=== PATIENT | female | born 1990 | race Two or more races ===

== ENCOUNTER → 2024-08-14 | Outpatient (BNVA) | payer MEDICAID, SELFPAY | END | disposition home or self-care (01) | PROVIDERS: PCP Nurse Practitioner Family; Referring Provider Nurse Practitioner Family; Visit Provider Urology | DX: N20.1 Calculus of ureter (principal); E66.9 Obesity, unspecified; Z68.29 Body mass index [BMI] 29.0-29.9, adult | CPT/HCPCS: 81003; 99212; G0463 ==

== ENCOUNTER 2024-09-03 06:30 | Day surgery (SDC) | payer MEDICAID, SELFPAY ==
[2024-09-02 11:52] VITALS: BMI 29.7
[2024-09-02 13:32] LABS: HCG Qualitative,Urine Positive
--- NOTE | 2024-09-02 14:44 | SUR.PREOP ---
Pt's test came back positive, pt stated she had an last Sunday and she provided documentation of the , Dr Hairston reviewed the paperwork,
[2024-09-03] VITALS (8 sets, daily range): BP systolic 112–145; BP diastolic 79–98; PULSE 73–100; RESP 12–18; TEMP 36.2–36.5; O2SAT 96–100; BMI 29.0
[2024-09-03] MEDS: VANCOMYCIN/NS 1 GM IVPB 200 ML IV (07:18)
[2024-09-03] MEDS: RINGERS LACTATED 1000 ML 1,000 ML 20 ML IV (07:18)
--- NOTE | 2024-09-03 08:20 | XR_ITS ---
Retrograde pyelogram right with without KUB Fluoroscopy 10 spot fluoroscopic abdomen films Exam date and time: September 03, 2024 1027 hours INDICATIONS: History right flank pain beginning February 2024, right hydronephrosis 5 mm distal right ureterovesical junction calculus on CT examination March 13, 2024, ureteral stone manipulation stent placement today TECHNIQUE AND FINDINGS: 10 spot fluoroscopic films of the abdomen Partial opacification of mildly dilated renal calyces Right ureteral stent satisfactory position Fluoroscopy 40 seconds radiation dose 9.7 milligray IMPRESSION: Right retrograde pyelogram as above
--- NOTE | 2024-09-03 10:10 | SUR.PHASEI ---
pt arrived to PACU via gurney awake, alert, able to follow commands, breathing unlabored, pt requests bedpan to urinate-pt placed on bedpan, report from Med KIM[facility] and Dr Mcknight
--- NOTE | 2024-09-03 10:31 | ESOP_ITS ---
Date of Procedure 09/03/24 Pre Op Diagnosis About 6 mm stone right distal ureter, right hydronephrosis, Post Op Diagnosis Same plus stone has moved into the right kidney middle pole calyx Procedure Cystoscopic examination right digital flexible ureteroscopy laser stone fragmentation and evaporation of right RIR right retrograde pyelogram under fluoroscopic examination placement of right ureteral stent in a retrograde fashion Findings Stone in the right distal ureteral which has moved into the right kidney Procedure Description Indication for procedure this is 34-year-old female. She has a history of stone disease in the past. She had right flank pain 2 years ago and she has seen the PCP according to the patient she was told she has a large stone and she was not referred for the treatment. Recently she had severe right flank pain with nausea vomiting, about a month before she consulted me, she had a CAT scan with stone protocol revealed right hydronephrosis and a 5 mm to 6 mm stone in the right distal ureter. She was recommended above procedure procedure and complications were discussed with patient in great detail informed consent is obtained Patient was brought to the operating room in a satisfactory condition after appropriate premedication she was appropriately identified by surgeon and operating room staff site scope and indication of the procedure were reconfirmed with the patient. General anesthesia was given uneventfully patient was positioned in a dorsal lithotomy position parts were prepped and draped in the usual sterile fashion at this time patient received perioperative antibiotics 20 mg of Lasix IV was given for diuresis and for prevention of pyelocalyceal infectious complications. Next 21 cystoscope was used to do the cystourethroscopy examination of the urethra revealed no stricture examination of bladder in all the quadrant was carried out there was no tumor stone or diverticula identified there was a E flux of clear urine from the left side there was no urine coming out of right ureteral orifice. Next I passed a open- ended Pollick catheter right ureteral orifice through the open-ended Pollick catheter I placed a safety wire into the upper pole calyx. At this time right collecting system I had decompressed it with urine coming out of right ureteral orifice under pressure next cystoscope was withdrawn gently semirigid ureteroscope was used for ureteroscopy and for passive dilation of the right ureter. The stone has already moved there was a inflammatory reaction around the stone in the distal ureter. At this time I used flexible digital ureteroscopy passed under direct vision into the collecting system. There was 5 to 6 mm stone in the middle pole calyx. With the 200 ?m laser fiber I fragmented the stone and evaporated. No active bleeding was seen hide retrograde pyelogram was performed there was no injury to the collecting system identified right side. Next the ureteroscope was withdrawn gently over the safety wire under fluoroscopic examination I placed 26 cm long 6 British double-J stent proximal and curled in the renal pelvis distally in the bladder. Bladder was emptied patient after having tolerated the procedure well was sent to recovery room in a satisfactory condition to be discharged home she will be followed in urology office for removal of the stent in 1 week's time thank you Patient is encouraged to drink a lot of fluid and pain medication is given to the patient Anesthesia GETA Pathology / specimen None Estimated Blood Loss 0.2 Disposition PACU Surgeon Jerome Leonard MD Surgical Staff Operation Date: 09/03/24 08:45 Case Staff Anesthesiologist: Lorenzo Mcknight
[2024-09-03] MEDS: traMADol HCL 50 MG TABLET PO (10:59)
--- NOTE | 2024-09-03 11:30 | SUR.PHASEII ---
pt awake, alert, able to follow commands, breathing unlabored, pt able to ambulate to bathroom to urinate, discharge instructions given by Juana Mackenzie RN, all questions answered, pt discharged via wheelchair with all belongings and copies of discharge paperwork.
== END 2024-09-03 11:30 | disposition home or self-care (01) ==
PROVIDERS: Anesthesiology; PCP Nurse Practitioner Family; Referring Provider Urology; Visit Provider Urology
PROC: 0TJB8ZZ Inspection of Bladder, Via Natural or Artificial Opening Endoscopic (ICD-10-PCS; CPT 52000; principal; 2024-09-03 08:30)
DX: N13.2 Hydronephrosis with renal and ureteral calculous obstruction (principal)
CPT/HCPCS: 52356; 76000; 81025; A4217; A4649; C1769; C1889; C1894; C2617; J1100; J1580; J1940; J2250; J2405; J2704; J3010; J3370; J3490; J7120; A9270

== ENCOUNTER 2024-09-08 23:53 | Emergency (ER) | payer MEDICAID, SELFPAY ==
[2024-09-08 23:53] VITALS: BMI 29.5
[2024-09-09 00:10] VITALS: BP 138/95; PULSE 80; RESP 18; TEMP 36.6; O2SAT 97
--- NOTE | 2024-09-09 00:17 | PD.EDRME ---
Rapid Medical Screening Exam RME Arrival date/time: 09/08/24 23:53 34-year-old female with spontaneous 10 days ago and status post renal stent placement reports with complaints of shortness of breath chest pain that radiates to left arm and jaw Chief Complaint: Chest Pain Time Seen by Provider: 09/09/24 00:10 Vital signs: Vital Signs Temperature 98 F 09/09/24 00:10 Pulse Rate 80 09/09/24 00:10 Respiratory Rate 18 09/09/24 00:10 Blood Pressure 138/95 H 09/09/24 00:10 Pulse Oximetry (%) 97 09/09/24 00:10 Oxygen Delivery Method Room Air 09/09/24 00:10
--- NOTE | 2024-09-09 00:39 | EDNOTE_ITS ---
ED Chest Pain RME/HPI General Chief Complaint: Chest Pain Stated Complaint: CHEST PRESSURE X 2HOURS Time Seen by Provider: 09/09/24 00:10 Arrival date/time: 09/08/24 23:53 Limitations: no limitations RME / HPI RME / HPI narrative: 09/08/24 23:53 34-year-old female with spontaneous 10 days ago and status post renal stent placement reports with complaints of shortness of breath chest pain that radiates to left arm and jaw ----- Dr. Ott's Main ED Evaluation: 34yo female with a recent spontaneous 10 days ago presents to the ED for a chief complaint of left-sided chest pain x 2 hours [employer]. Patient states she was cooking when she started having chest pain. She states the pain radiates to her left arm and is pressure in nature. She reports associated numbness, facial pain, and mild shortness of breath. She denies any cough, fever, chills or any other associated symptoms. Denies being on control. Denies any tobacco use. No known allergies. Patient notes having occasional vaginal spotting. Related Data Previous Rx's ?Medication ?Instructions ?Recorded tramadol 50 mg tablet 50 mg PO Q8H PRN pain #10 tabs 09/03/24 Allergies Allergy/AdvReac Type Severity Reaction Status Date / Time No Known Allergies Allergy Verified 09/03/24 11:27 Review of Systems Review of Systems Systems Reviewed: All systems reviewed, normal except as documented Past Medical History Past Medical History NEUROLOGIC: Negative Neurological Disorders or Seizures CARDIAC: Negative Cardiac Disorders or Congestive Heart Failure RESPIRATORY: Positive Asthma; Negative Chronic Obstructive Pulmonary Disease (COPD) GASTROINTESTINAL: Negative Gastrointestinal Disorders GENITOURINARY: Positive Genitourinary Disorders and Kidney Stones; Negative Renal Disease REPRODUCTIVE: Positive Previous Pregnancies (abortions) MUSCULOSKELETAL: Negative Musculoskeletal Disorders ENDOCRINE: Negative Endocrine Disorders, Diabetes Mellitus Type 1 or Diabetes Mellitus Type 2 HEMATOLOGIC: Negative Blood Disorders or Sickle Cell Disease OTHER HISTORY: Negative Hospitalization, Autoimmune Disease, Shingles, Blood Transfusions, Blood Transfusion Reaction, Anesthesia Reactions, Clostridium Difficile or Cancer Family History FAMILY HISTORY: Negative Family Psychiatric Problems, Family Respiratory Disorders, Family Cardiac Disorders, Family Gastrointestinal Problems, Family Cancer, Family Surgery or Family Anesthesia Reaction Social History SMOKING STATUS: Never smoker SUBSTANCE USE: does not use ED Exam General Limitations: Present no limitations General appearance: Present alert and in no apparent distress Head Head exam: Present atraumatic Eye Eye exam: Present normal appearance, PERRL and EOMI ENT ENT exam: Present normal exam, normal oropharynx and mucous membranes moist Neck Neck exam: Present normal inspection, full ROM and trachea midline Chest Chest inspection: Present normal inspection and symmetric chest wall rise Respiratory Respiratory exam: Present normal lung sounds bilaterally Cardiovascular Cardiovascular exam: Present regular rate, normal rhythm and normal heart sounds Abdominal Exam Abdominal exam: Present soft and normal bowel sounds Extremities Exam Extremities exam: Present normal inspection and full ROM Back Exam Back exam: Present normal inspection and full ROM Neurological Exam Neurological exam: Present alert, oriented X3 and CN II-XII intact Psychiatric Psychiatric exam: Present normal affect and normal mood Skin Skin exam: Present warm, dry, intact and normal color Course Quality Measures none Orders Category Date Time Status CT Screening NOW Care 09/09/24 00:16 Completed EKG (ED ONLY) *Do not use* NOW Care 09/08/24 23:55 Completed Insert IV NOW Care 09/09/24 00:38 Completed CXRP [XR chest 1V portable] Stat Exams 09/09/24 04:00 Taken EKG (ED Only) Stat Exams 09/08/24 23:55 Ordered CBC Stat Lab 09/09/24 00:41 Completed CMP [Comprehensive Metabolic Panel] Stat Lab 09/09/24 00:41 Completed D-Dimer Stat Lab 09/09/24 00:41 Completed HCG,Qualitative Serum Stat Lab 09/09/24 00:41 Completed PT [Prothrombin Time with INR] Stat Lab 09/09/24 00:41 Completed PTT [Partial Thromboplastin Time] Stat Lab 09/09/24 00:41 Completed Troponin I Stat Lab 09/09/24 00:41 Completed Ketorolac Inj [Toradol Inj] Med 09/09/24 04:58 Discontinued 15 mg IVP X1 ONE Vital Signs Vital signs: Vital Signs Temperature 98 F 09/09/24 00:10 Pulse Rate 80 09/09/24 00:10 Respiratory Rate 18 09/09/24 00:10 Blood Pressure 138/95 H 09/09/24 00:10 Pulse Oximetry (%) 97 09/09/24 00:10 Oxygen Delivery Method Room Air 09/09/24 00:10 Pulse ox is 97% on room air, which is normal according to my interpretation. Chest Pain Patient data External records reviewed:: [facility] previous records (Per chart review, patient has no relevant previous ED visits.) Clinical information provided by:: patient Social determinants that could affect healthcare access:: none Patient has the following chronic illnesses:: asthma How is presenting disease/condition affected by chronic disease/condition?: uneffected by Evaluation data The following diagnostics were reviewed and interpreted by me:: lab results, radiology exam(s) and EKG tracing(s) Lab and/or radiology exams considered but not ordered:: none Interpretation Summary: CBC is normal, CMP is normal, Troponin is normal, HCG is negative, according to my interpretation. CXR is negative for any infiltrates, cardiomegaly, pleural effusions or any other acute findings, according to my interpretation. EKG done at 0007, NSR, rate of 71, normal intervals, normal axis, no acute ST or T wave changes, no STEMI, according to my interpretation. Medications / Prescriptions Medications or Prescriptions considered but not ordered:: none Medication administrations:: Medication Administration History Discontinued Medications Ketorolac Tromethamine (Ketorolac Inj 30 Mg/Ml Vial) 15 mg IVP X1 ONE Stop: 09/09/24 04:59 Last Admin: 09/09/24 05:01 Dose: 15 mg Documented By: DB see above, if any Consultations Consultation(s) initiated? (list below): No Diagnosis Chest Pain Differential Diagnosis: costochondritis and other (PE, STEMI, NSTEMI, electrolyte abnormality, dehydration, musculoskeletal pain) Most likely diagnosis given after review of the tests above:: see below Admission Indicated Admission indicated?: not indicated Admission Request Was there a request for admission?: No Disposition Plan Disposition Plan: Discharge Discharge Attestation Discharge Attestation: The patient and all family members were given an opportunity to ask questions and understood the discharge instructions. Discharge instructions specifically effects, indications for sooner follow up or return to the emergency department, and the expected course of current diagnosis. Patient condition: Stable Discharge Plan Plan Patient Disposition: HOME (Self Care) Patient condition on transfer: Stable Prescriptions/Referrals Prescriptions/Med Rec: No Action tramadol 50 mg tablet 50 mg PO Q8H PRN (Reason: pain) Qty: 10 0RF Referrals: Temporary Provider,ED [Physician] - In 1 week Problem List Clinical Impression: Atypical chest pain Patient/Caregiver Discharge Instructions Education Materials: ED Pain, Acute, Uncertain Cause Additional Instructions: You can take [id number] Motrin and or Tylenol as needed for the next 2 to 3 days. Your blood test are reassuring and I do not believe that you have a clot in your lung or having a heart attack. Please follow-up with your primary care in the next 3 to 4 days. Return to the emergency department for worsening symptoms or any other concerns. Stay hydrated with Pedialyte and Gatorade to avoid dehydration. Print Language: Malagasy Stand Alone Forms: Eva Award Info., Patient Portal Info Letter
[2024-09-09 01:03] LABS: Basophils % (Auto) 0 % (0-2.5); Eosinophils # (Auto) 0.2 Thou/mm3 (0.0-0.5); Eosinophils % (Auto) 3 % (0-10); Hematocrit 38.8 % (36.0-46.0); Immature Granulocytes % (Auto) 0 % (0-0); Immature Granulocytes Auto 0.02 Thou/mm3 (0.00-0.00); Lymphocytes # (Auto) 2.6 Thou/mm3 (1.0-4.8); Lymphocytes % (Auto) 33 % (10-50); Mean Corpuscular HGB Conc 36.1 g/dl (31.0-37.0); Mean Corpuscular Hemoglobin 30.5 pg (25.0-35.0); Mean Corpuscular Volume 85 fL (80-100); Monocytes # (Auto) 0.6 Thou/mm3 (0.0-0.8); Monocytes % (Auto) 7 % (0-12); Neutrophils # (Auto) 4.4 Thou/mm3 (1.8-7.7); Neutrophils % (Auto) 56 % (37-80); Nucleated Red Blood Cell % 0 /100 WBC (0); Platelet Count 273 Thou/mm3 (140-440); RDW Standard Deviation 36.2 fL (36.4-46.3); Red Blood Count 4.59 Miln/mm3 (4.00-5.20); White Blood Count 7.9 Thou/mm3 (3.6-11.0)
[2024-09-09 01:13] LABS: HCG,Qualitative Serum Negative
[2024-09-09 01:16] LABS: Partial Thromboplastin Time 26.5 Seconds (22.0-36.0); Prothrombin Time 10.9 Seconds (9.0-12.2)
[2024-09-09 01:19] LABS: Alanine Aminotransferase 38 U/L (10-49); Albumin, Serum 4.8 gm/dL (3.5-5.0); Albumin/Globulin Ratio 1.9 (1.2-2.2); Alkaline Phosphatase 75 U/L (46-116); Anion Gap 7 (7-16); Aspartate Amino Transferase 23 U/L (0-34); BUN/Creatinine Ratio 19 Ratio (12-20); Bilirubin,Total 0.4 mg/dL (0.3-1.2); Blood Urea Nitrogen 15 mg/dL (9-23); Carbon Dioxide 28.7 mMol/L (20.0-31.0); Chloride 106 mMol/L (98-107); Creatinine (Component) 0.8 mg/dL (0.6-1.3); Globulin 2.5 gm/dL (2.3-3.5); Glucose 94 mg/dL (74-106); Osmolality,Calculated 283 (275-295); Potassium 3.6 mMol/L (3.4-5.1); Sodium 142 mMol/L (136-145); Total Protein 7.3 gm/dL (5.7-8.2); Troponin I < 0.002 ng/mL (0.0-0.045); eGFR > 60 See Note
[2024-09-09 02:29] LABS: D-Dimer < 250 ng/mL (<600)
--- NOTE | 2024-09-09 04:00 | XR_ITS ---
Examination: AP chest single view Technique one AP portable upright chest single view Exam date and time: September 09, 2024 0409 hours Comparison June 24, 2008 INDICATIONS: Chest pain today. FINDINGS: Normal heart size. Lungs are clear. The osseous structures are intact IMPRESSION: No active disease
[2024-09-09] MEDS: KETOROLAC INJ 30 MG/ML VIAL 15 MG IVP (05:01)
[2024-09-09 05:11] VITALS: BP 114/76; PULSE 62; RESP 16; TEMP 36.6; O2SAT 99
== END 2024-09-09 05:11 | disposition home or self-care (01) ==
PROVIDERS: Physician Assistant; Emergency Provider Emergency Medicine; PCP Nurse Practitioner Family
DX: R07.89 Other chest pain (principal)
CPT/HCPCS: 36415; 71045; 80053; 84484; 84703; 85025; 85379; 85610; 85730; 93005; 96374; 99285; J1885

== ENCOUNTER 2024-10-24 21:27 | Emergency (ER) | payer MEDICAID, SELFPAY ==
[2024-10-24 21:29] VITALS: BMI 27.4
[2024-10-24 21:50] VITALS: BP 132/93; PULSE 79; RESP 20; TEMP 36.8; O2SAT 97
--- NOTE | 2024-10-24 21:58 | XR_ITS ---
Examination: CT abdomen and pelvis without contrast. Coronal 3-D reconstructions. Sagittal 2-D reconstructions. Date and time of exam:October 24, 2024 at 11:31 PM Comparison March 13, 2024 INDICATIONS: Right flank pain beginning 2 days ago CTDI: vol (mGy): 8.44 DLP: (mGycm): 472 Technique: Axial images of the abdomen have been obtained, 3 mm slice thickness Intravenous contrast material has not been administered. Low dose protocols were performed. One or more of the following dose reduction techniques were used; automated exposure control, adjustment of the mA and/or KV according to patient size, use of iterative reconstruction technique. Findings: No focal liver or splenic lesions No gallstones No pancreatic mass 2 mm nonobstructing left renal calculus Minimal right hydronephrosis, right ureteral stent in satisfactory position Aorta normal size Normal appendix No bowel obstruction Mild disc narrowing L5-S1 Contracted urinary bladder with wall thickening IMPRESSION: Minimal right hydronephrosis, right ureteral stent in satisfactory position
--- NOTE | 2024-10-24 21:59 | PD.EDRME ---
Rapid Medical Screening Exam RME Arrival date/time: 10/24/24 21:27 34F with history of kidney stones (has stent and followed by Dr. Leonard) presents to ED with worsening flank pain, dysuria, and hematuria. Chief Complaint: Back Pain/Injury Time Seen by Provider: 10/25/24 00:00 Vital signs: Vital Signs Temperature 98.3 F 10/24/24 21:50 Pulse Rate 79 10/24/24 21:50 Respiratory Rate 20 10/24/24 21:50 Blood Pressure 132/93 H 10/24/24 21:50 Pulse Oximetry (%) 97 10/24/24 21:50 Oxygen Delivery Method Room Air 10/24/24 21:50
[2024-10-24 22:17] LABS: Collection Type, Urine Clean Catch
[2024-10-24 22:29] LABS: Bilirubin,Urine Negative (Negative); Blood,Urine 3+ (Negative); Clarity,Urine Turbid (Clear/Hazy); Color,Urine Yellow (Lt Yel-Yel); Glucose, Urine Negative (Negative); Hyaline Casts,Urine < 1 /hpf (0-1); Ketones,Urine Negative (Negative); Leukocyte Esterase,Urine Positive (Negative); Nitrite,Urine Negative (Negative); PH,Urine 6.5 (5.0-7.0); Protein,Urine 2+ (Neg - Trace); RBC,Urine 534 /hpf (0-3); Specific Gravity,Urine 1.022 (1.001-1.035); Squamous Epithelial Cell,Urine 2 /hpf (0-5); Urobilinogen,Urine Negative mg/dL (0.0-1.0); WBC,Urine 52 /hpf (0-5)
[2024-10-24 22:30] LABS: Basophils % (Auto) 0 % (0-2.5); Eosinophils # (Auto) 0.3 Thou/mm3 (0.0-0.5); Eosinophils % (Auto) 3 % (0-10); Hemoglobin 13.6 g/dL (12.0-16.0); Immature Granulocytes % (Auto) 0 % (0-0); Immature Granulocytes Auto 0.02 Thou/mm3 (0.00-0.00); Lymphocytes # (Auto) 2.8 Thou/mm3 (1.0-4.8); Lymphocytes % (Auto) 32 % (10-50); Mean Corpuscular HGB Conc 35.8 g/dl (31.0-37.0); Mean Corpuscular Hemoglobin 30.6 pg (25.0-35.0); Mean Corpuscular Volume 85 fL (80-100); Monocytes # (Auto) 0.5 Thou/mm3 (0.0-0.8); Monocytes % (Auto) 6 % (0-12); Neutrophils # (Auto) 5.2 Thou/mm3 (1.8-7.7); Neutrophils % (Auto) 59 % (37-80); Nucleated Red Blood Cell % 0 /100 WBC (0); Platelet Count 251 Thou/mm3 (140-440); RDW Standard Deviation 37.3 fL (36.4-46.3); Red Blood Count 4.45 Miln/mm3 (4.00-5.20); White Blood Count 8.8 Thou/mm3 (3.6-11.0)
[2024-10-24 22:38] LABS: HCG Qualitative,Urine Negative
[2024-10-24 22:53] LABS: Alanine Aminotransferase 28 U/L (10-49); Albumin, Serum 4.9 gm/dL (3.5-5.0); Albumin/Globulin Ratio 1.8 (1.2-2.2); Alkaline Phosphatase 75 U/L (46-116); Anion Gap 11 (7-16); Aspartate Amino Transferase 29 U/L (0-34); BUN/Creatinine Ratio 15 Ratio (12-20); Bilirubin,Total 0.4 mg/dL (0.3-1.2); Blood Urea Nitrogen 12 mg/dL (9-23); Calcium 9.7 mg/dL (8.3-10.6); Calcium (Corrected) 9.7 mg/dL (8.5-10.1); Carbon Dioxide 25.8 mMol/L (20.0-31.0); Chloride 106 mMol/L (98-107); Creatinine (Component) 0.8 mg/dL (0.6-1.3); Estimated Creatinine Clearance 98.6 mL/min (>60); Globulin 2.7 gm/dL (2.3-3.5); Glucose 92 mg/dL (74-106); Lipase 40 U/L (12-53); Osmolality,Calculated 284 (275-295); Sodium 143 mMol/L (136-145); Total Protein 7.6 gm/dL (5.7-8.2); eGFR > 60 See Note
[2024-10-24] MEDS: KETOROLAC INJ 60 MG/2 ML VIAL IM (23:23)
--- NOTE | 2024-10-25 00:01 | EDNOTE_ITS ---
ED Back Injury Pain RME/HPI General Chief Complaint: Back Pain/Injury Stated Complaint: RT FLANK PAIN Time Seen by Provider: 10/25/24 00:00 Arrival date/time: 10/24/24 21:27 34F with history of kidney stones (has stent and followed by Dr. Leonard) and asthma presents to ED with worsening flank pain, dysuria, and hematuria. Limitations: no limitations RME / HPI RME / HPI Narrative: 10/24/24 21:27 Related Data Previous Rx's ?Medication ?Instructions ?Recorded tramadol 50 mg tablet 50 mg PO Q8H PRN pain #10 ta bs 09/03/24 cefuroxime axetil 500 mg tablet 500 mg PO BID 7 days # 14 tabs 10/25/24 Allergies Allergy/AdvReac Type Severity Reaction Status Date / Time No Known Allergies Allergy Verified 09/03/24 11:27 Review of Systems Review of Systems Systems Reviewed: All systems reviewed, normal except as documented Constitutional Constitutional: Reports system reviewed and no additional complaints, except as documented, Denies fever(s) and Denies headache(s) ENT Ears, Nose, Mouth, and Throat: Denies disequilibrium and Denies headache(s) Cardiovascular Cardiovascular: Reports system reviewed and no additional complaints, except as documented, Denies chest pain and Denies dyspnea Respiratory Respiratory: Reports system reviewed and no additional complaints, except as documented, Denies cough and Denies dyspnea Gastrointestinal Gastrointestinal: Reports system reviewed and no additional complaints, except as documented, Denies abdominal pain, Denies nausea and Denies vomiting Genitourinary Genitourinary: Reports as per HPI, Reports dysuria, Reports flank pain and Reports hematuria Neurologic Neurologic: Reports system reviewed and no additional complaints, except as documented, Denies confusion, Denies disequilibrium and Denies headache(s) Psychiatric Psychiatric: Denies confusion Past Medical History Past Medical History NEUROLOGIC: Negative Neurological Disorders or Seizures CARDIAC: Negative Cardiac Disorders or Congestive Heart Failure RESPIRATORY: Positive Asthma; Negative Chronic Obstructive Pulmonary Disease (COPD) GASTROINTESTINAL: Negative Gastrointestinal Disorders GENITOURINARY: Positive Genitourinary Disorders and Kidney Stones; Negative Renal Disease REPRODUCTIVE: Positive Previous Pregnancies (abortions) MUSCULOSKELETAL: Negative Musculoskeletal Disorders ENDOCRINE: Negative Endocrine Disorders, Diabetes Mellitus Type 1 or Diabetes Mellitus Type 2 HEMATOLOGIC: Negative Blood Disorders or Sickle Cell Disease OTHER HISTORY: Negative Hospitalization, Autoimmune Disease, Shingles, Blood Transfusions, Blood Transfusion Reaction, Anesthesia Reactions, Clostridium Difficile or Cancer Family History FAMILY HISTORY: Negative Family Psychiatric Problems, Family Respiratory Disorders, Family Cardiac Disorders, Family Gastrointestinal Problems, Family Cancer, Family Surgery or Family Anesthesia Reaction Social History SMOKING STATUS: Never smoker SUBSTANCE USE: does not use ED Exam General Limitations: Present no limitations General appearance: Present alert and in no apparent distress Head Head exam: Present atraumatic Eye Eye exam: Present normal appearance, PERRL and EOMI ENT ENT exam: Present normal exam, normal oropharynx and mucous membranes moist Neck Neck exam: Present normal inspection, full ROM and trachea midline Chest Chest inspection: Present normal inspection and symmetric chest wall rise Respiratory Respiratory exam: Present normal lung sounds bilaterally Cardiovascular Cardiovascular exam: Present regular rate, normal rhythm and normal heart sounds Abdominal Exam Abdominal exam: Present soft and normal bowel sounds Extremities Exam Extremities exam: Present normal inspection and full ROM Back Exam Back exam: Present normal inspection and full ROM Neurological Exam Neurological exam: Present alert, oriented X3 and CN II-XII intact Psychiatric Psychiatric exam: Present normal affect and normal mood Skin Skin exam: Present warm, dry, intact and normal color Course Quality Measures none Orders Category Date Time Status CT abdomen pelvis wo con Stat Exams 10/24/24 21:58 Completed CBC Stat Lab 10/24/24 22:18 Completed CMP [Comprehensive Metabolic Panel] Stat Lab 10/24/24 22:18 Completed HCG Qualitative,Urine Stat Lab 10/24/24 22:10 Completed Lipase Stat Lab 10/24/24 22:18 Completed UA [Urinalysis] Stat Lab 10/24/24 22:10 Completed Urine Culture Stat Lab 10/24/24 21:58 Received Ketorolac Inj [Toradol Inj] Med 10/24/24 21:58 Discontinued 60 mg IM X1 ONE cefuroxime axetiL [cefUROXime axetil] Med 10/25/24 00:06 Discontinued 500 mg PO X1 ONE Vital Signs Vital signs: Vital Signs Temperature 98.3 F 10/24/24 21:50 Pulse Rate 79 10/24/24 21:50 Respiratory Rate 20 10/24/24 21:50 Blood Pressure 132/93 H 10/24/24 21:50 Pulse Oximetry (%) 97 10/24/24 21:50 Oxygen Delivery Method Room Air 10/24/24 21:50 O2 at 97% on RA and WNLs Back Pain / Injury MDM Narrative MDM Narrative:: 34F with history of kidney stones (has stent and followed by Dr. Leonard) and asthma presents to ED with worsening flank pain, dysuria, and hematuria. Physical exam reveals no flank tenderness. Patient is afebrile, calm, and alert. CT stent in satisfactory position with minimal hydronephrosis. Normal Cr. No leukocytosis. UA mostly RBCs, but some WBCs. Will treat with ABX given dysuria symptoms. Counseled to follow-up with urologist. Patient data External records reviewed:: [facility] previous records Clinical information provided by:: patient Social determinants that could affect healthcare access:: none Patient has the following chronic illnesses:: asthma How is presenting disease/condition affected by chronic disease/condition?: uneffected by Evaluation data The following diagnostics were reviewed and interpreted by me:: lab results and radiology exam(s) Lab and/or radiology exams considered but not ordered:: ordered Interpretation Summary: above Medications / Prescriptions Medications or Prescriptions considered but not ordered:: ordered Medication administrations:: Medication Administration History Discontinued Medications Cefuroxime Axetil (Cefuroxime Axetil 250 Mg Tablet) 500 mg PO X1 ONE Stop: 10/25/24 00:07 Last Admin: 10/25/24 00:12 Dose: 500 mg Documented By: KATHY Ketorolac Tromethamine (Ketorolac Inj 60 Mg/2 Ml Vial) 60 mg IM X1 ONE Stop: 10/24/24 21:59 Last Admin: 10/24/24 23:23 Dose: 60 mg Documented By: STEVEN talamantes Consultations Consultation(s) initiated? (list below): No Diagnosis Differential diagnosis back pain/injury: lumbar radiculopathy, sciatica, strain of lumbar region, renal colic, pyelonephritis, thoracic back pain, AAA, discitis and other (kidney stone, UTI) Most likely diagnosis given after review of the tests above:: UTI and renal colic Admission Indicated Admission indicated?: not indicated Admission Request Was there a request for admission?: No Disposition Plan Disposition Plan: Discharge Discharge Attestation Discharge Attestation: The patient and all family members were given an opportunity to ask questions and understood the discharge instructions. Discharge instructions specifically effects, indications for sooner follow up or return to the emergency department, and the expected course of current diagnosis. Patient condition: Stable Discharge Plan Plan Patient Disposition: HOME (Self Care) Disposition Comment: Stable Prescriptions/Referrals Prescriptions/Med Rec: New cefuroxime axetil 500 mg tablet 500 mg PO BID 7 Days Qty: 14 0RF No Action tramadol 50 mg tablet 50 mg PO Q8H PRN (Reason: pain) Qty: 10 0RF Referrals: Divya Knutson FNP [Primary Care Provider] - In 1 week Problem List Clinical Impression: UTI (urinary tract infection), Renal colic Patient/Caregiver Discharge Instructions Education Materials: ED CYSTITIS Female Adult Additional Instructions: Please follow-up with PCP within 24-48 hours and return immediately if symptoms worsen. Follow-up with Dr. Leonard for possible stent removal. Print Language: Welsh Stand Alone Forms: Patient Portal Info Letter MICHAEL/SOREN Supervising Physician MICHAEL/SOREN Supervising Physician: Dr. Lizama
[2024-10-25] MEDS: cefuroxime axetiL 250 MG TABLET 500 MG PO (00:12)
== END 2024-10-25 00:22 | disposition home or self-care (01) ==
PROVIDERS: Physician Assistant; Emergency Provider Emergency Medicine; PCP Nurse Practitioner Family
DX: N39.0 Urinary tract infection, site not specified (principal); N23 Unspecified renal colic; Z96.0 Presence of urogenital implants; J45.909 Unspecified asthma, uncomplicated
CPT/HCPCS: 36415; 74176; 80053; 81001; 81025; 83690; 85025; 87086; 96372; 99284; J1885; A9270

== ENCOUNTER → 2024-11-11 | Outpatient (BNVA) | payer MEDICAID, SELFPAY | END | disposition home or self-care (01) | PROVIDERS: PCP Nurse Practitioner Family; Referring Provider Nurse Practitioner Family; Visit Provider Urology | DX: N20.1 Calculus of ureter (principal); Z96.0 Presence of urogenital implants | CPT/HCPCS: 99203; 99213; G0463 ==

== ENCOUNTER 2024-11-12 11:25 | Day surgery (SDC) | payer MEDICAID, SELFPAY ==
[2024-11-12] VITALS (7 sets, daily range): BP systolic 97–131; BP diastolic 59–85; PULSE 53–78; RESP 13–15; TEMP 36.4–36.7; O2SAT 98–100; BMI 29.0
[2024-11-12] MEDS: VANCOMYCIN/NS 1 GM IVPB 200 ML IV (12:53)
[2024-11-12] MEDS: RINGERS LACTATED 1000 ML 1,000 ML 20 ML IV (12:53)
[2024-11-12 12:56] LABS: HCG Qualitative,Urine Negative
--- NOTE | 2024-11-12 13:00 | XR_ITS ---
Examination: Retrograde pyelogram right with without KUB Fluoroscopy AP abdomen 4 views Exam date and time: November 12, 2024 1443 hours INDICATIONS: Right flank pain September 2024, minimal right hydronephrosis right ureteral stent satisfactory position on CT examination October 24, 2024, stent replacement today TECHNIQUE AND FINDINGS: 4 spot fluoroscopic abdomen films Opacification of nondilated right renal collecting system Right ureteral stent satisfactory position IMPRESSION: Right ureteral stent satisfactory position Fluoroscopy 46 seconds radiation dose 12.27 milligray 4 spot fluoroscopic images
--- NOTE | 2024-11-12 14:15 | SUR.PHASEI ---
1415 Patient arrived to recovery resting comfortably in [facility], drowsy and able to arouse with verbal prompting, breathing unlabored, vital signs stable, denies pain, lung sounds clear upon auscultation, bilateral radial pulses present when palpated, report received from Dr. Mcknight and Shekhar KIMBLE
--- NOTE | 2024-11-12 14:18 | PD.SUROPNT ---
Date of Procedure 11/12/24 Pre Op Diagnosis Right ureteral stone with obstruction status post laser stone fragmentation stone basketing stent placement, gross hematuria severe pain right flank Post Op Diagnosis Same plus a lot of inflammatory reaction around the ureteral orifice right side Procedure Cystoscopic examination placement of safety wire right, removal of right ureteral stent, right retrograde pyelogram placement of right ureteral stent 26 cm long 6 Eritrean double-J in a retrograde fashion under fluoroscopic examination Findings A lot of inflammatory reaction around the right ureteral orifice Procedure Description Indication for procedure this is a 34-year-old female she had a impacted stone right distal ureter she underwent cystoscopy laser stone fragmentation stone basketing placement of the stent. Patient patient was seen in the office with gross hematuria and dysuria and right flank pain gross she had placement of stent more than 2 months ago because her authorization from insurance company procedure for the removal of the stent was not done in the office instead I saw her in the office. Because of gross hematuria right flank pain and dysuria I recommended above procedure to be done at the hospital and explained to the patient if there is any calcification of the stent it will be better to do a retrograde and possible use laser to remove the calcification around the stent so I recommended above procedure to to be done at the hospital procedure and complications were discussed with patient in great detail informed consent is obtained Patient was brought to the operating room in a satisfactory condition after appropriate premedication was put on the operating table in a spine position she was appropriately identified by surgeon and operating room staff site scope and indications of the procedure were reconfirmed with the patient. At this time patient received perioperative antibiotics and 20 mg of Lasix IV was given for diuresis as well as for prevention of pyelocalyceal reflux infectious complication next 21 cystoscope was used to do the cystourethroscopy examination of bladder in all the quadrant was carried out there was a lot of inflammatory reaction around the stent and right ureteral orifice next I passed the open-ended Pollick catheter into the right ureteral orifice and through the open-ended Pollick catheter I passed passed a safety wire as I advanced the safety wire it was curling in the distal ureter next I was able to manipulate open ended Pollick catheter and it passed beyond the obstruction. After I have bypassed the obstruction in the distal ureter I did retrograde pyelogram under fluoroscopic examination I did not see any stone in the distal ureter next I was able to place a safety wire into the upper pole calyx of the right kidney next instrument was withdrawn gently keeping safety wire in place next I passed the cystoscope with a stent grasper I was able to remove the stent without any resistance. Next semirigid ureteroscope was used to do ureteroscopy to make sure there is no stricture or residual stone or injury and I did not find any injury to the distal ureter no stone in the ureter or stricture was identified. Retrograde pyelogram revealed no hydronephrosis. Since there was a lot of inflammatory reaction around the orifice patient is going to be discharged home, in case she gets obstruction due to edema and inflammatory reaction around the ureteral orifice I decided to place another stent 26 cm long 6 Eritrean double-J under fluoroscopic examination over the safety wire proximal and curled in the renal pelvis distally in the bladder next bladder was emptied instrument was withdrawn gently patient after having tolerated the procedure well was sent to recovery room in a satisfactory condition she will be seen in the office in 1 weeks for stent removal and of dictation thank you Anesthesia GETA Pathology / specimen None Estimated Blood Loss 0.5 Condition Stable Disposition PACU Surgeon Jerome Leonard MD Surgical Staff Operation Date: 11/12/24 13:15 Case Staff Anesthesiologist: Lorenzo Mcknight
--- NOTE | 2024-11-12 15:21 | SUR.PHASEII ---
1521 Patient meets discharge criteria from recovery, awake and alert, breathing unlabored, vital signs stable, denies pain, drinking water; tolerating well, denies nausea, patient able to dress herself into her clothing, discharge instructions given to patient and patients partner, partner signed discharge instructions. Patient given all her belongings prior to discharge, transported via wheelchair and left in a private vehicle.
== END 2024-11-12 15:21 | disposition home or self-care (01) ==
PROVIDERS: Anesthesiology; PCP Nurse Practitioner Family; Referring Provider Urology; Visit Provider Urology
PROC: 0TJB8ZZ Inspection of Bladder, Via Natural or Artificial Opening Endoscopic (ICD-10-PCS; CPT 52000; principal; 2024-11-12 13:00)
DX: N20.1 Calculus of ureter (principal); T83.592A Infection and inflammatory reaction due to indwelling ureteral stent, initial encounter
CPT/HCPCS: 52356; 74420; 81025; A4217; A4649; C1769; C1894; C2617; J1100; J1580; J1885; J2250; J2405; J2704; J3010; J3370; J7120

== ENCOUNTER → 2024-11-17 | Outpatient (BNVA) | payer MEDICAID, SELFPAY | END | disposition home or self-care (01) | PROVIDERS: PCP Nurse Practitioner Family; Referring Provider Nurse Practitioner Family; Visit Provider Urology | DX: N20.1 Calculus of ureter (principal); Z96.0 Presence of urogenital implants | CPT/HCPCS: 52310; 81003; 96372; A4217; A4649; C1894; J1580; A9270 ==

== ENCOUNTER 2025-01-16 01:57 | Emergency (ER) | payer MEDICAID, SELFPAY ==
--- NOTE | 2025-01-16 02:00 | EKG_ITS ---
[facility] Test Date: 2025-01-16 Pat Name: CONCETTA BROWN Department: Room: - Gender: Female Management Consulting: : 1990 Requested By: ED Temporary Provider Order Number: [id number] Reading MD: ED Temporary Provider Measurements Intervals Meally Rate: 60 P: 47 IA: 161 QRS: 64 QRSD: 83 T: 47 QT: 424 QTc: 426 Interpretive Statements SINUS RHYTHM Compared to ECG 09/09/2024 00:07:27 No significant changes /store/S0/[id number]
[2025-01-16 02:08] VITALS: BP 133/92; PULSE 66; RESP 17; TEMP 36.8; O2SAT 98
[2025-01-16] MEDS: NAPROXEN 250 MG TABLET 500 MG PO (02:51)
[2025-01-16 04:06] VITALS: BP 129/85; PULSE 63; RESP 18; TEMP 36.8; O2SAT 98
--- NOTE | 2025-01-16 05:55 | EDNOTE_ITS ---
ED Chest Pain RME/HPI General Chief Complaint: Chest Pain Stated Complaint: Sharp Chest Pain x2 hours Time Seen by Provider: 01/16/25 02:19 Arrival date/time: 01/16/25 01:57 34F with no significant PMH presents to ED with several hours of CP. Patient denies URI symptoms and anxiety/depression. Limitations: no limitations Related Data Allergies Allergy/AdvReac Type Severity Reaction Status Date / Time No Known Allergies Allergy Verified 11/17/24 13:24 Review of Systems Review of Systems Systems Reviewed: All systems reviewed, normal except as documented Constitutional Constitutional: Reports system reviewed and no additional complaints, except as documented, Denies fever(s) and Denies headache(s) ENT Ears, Nose, Mouth, and Throat: Denies disequilibrium and Denies headache(s) Cardiovascular Cardiovascular: Reports system reviewed and no additional complaints, except as documented, Reports as per HPI, Reports chest pain and Denies dyspnea Respiratory Respiratory: Reports system reviewed and no additional complaints, except as documented, Denies cough and Denies dyspnea Gastrointestinal Gastrointestinal: Reports system reviewed and no additional complaints, except as documented, Denies abdominal pain, Denies nausea and Denies vomiting Neurologic Neurologic: Reports system reviewed and no additional complaints, except as documented, Denies confusion, Denies disequilibrium and Denies headache(s) Psychiatric Psychiatric: Denies confusion Past Medical History Past Medical History NEUROLOGIC: Negative Neurological Disorders or Seizures CARDIAC: Negative Cardiac Disorders or Congestive Heart Failure RESPIRATORY: Positive Asthma (as a child); Negative Chronic Obstructive Pulmonary Disease (COPD) GASTROINTESTINAL: Negative Gastrointestinal Disorders GENITOURINARY: Positive Genitourinary Disorders and Kidney Stones; Negative Renal Disease REPRODUCTIVE: Positive Previous Pregnancies (abortions) MUSCULOSKELETAL: Negative Musculoskeletal Disorders ENDOCRINE: Negative Endocrine Disorders, Diabetes Mellitus Type 1 or Diabetes Mellitus Type 2 HEMATOLOGIC: Negative Blood Disorders or Sickle Cell Disease OTHER HISTORY: Negative Hospitalization, Autoimmune Disease, Shingles, Blood Transfusions, Blood Transfusion Reaction, Anesthesia Reactions, Clostridium Difficile or Cancer Family History FAMILY HISTORY: Negative Family Psychiatric Problems, Family Respiratory Disorders, Family Cardiac Disorders, Family Gastrointestinal Problems, Family Cancer, Family Surgery or Family Anesthesia Reaction Social History SMOKING STATUS: Former smoker SUBSTANCE USE: does not use ED Exam General Limitations: Present no limitations General appearance: Present alert and in no apparent distress Head Head exam: Present atraumatic Eye Eye exam: Present normal appearance, PERRL and EOMI ENT ENT exam: Present normal exam, normal oropharynx and mucous membranes moist Neck Neck exam: Present normal inspection, full ROM and trachea midline Chest Chest inspection: Present symmetric chest wall rise and tenderness Respiratory Respiratory exam: Present normal lung sounds bilaterally Cardiovascular Cardiovascular exam: Present regular rate, normal rhythm and normal heart sounds Abdominal Exam Abdominal exam: Present soft and normal bowel sounds Extremities Exam Extremities exam: Present normal inspection and full ROM Back Exam Back exam: Present normal inspection and full ROM Neurological Exam Neurological exam: Present alert, oriented X3 and CN II-XII intact Psychiatric Psychiatric exam: Present normal affect and normal mood Skin Skin exam: Present warm, dry, intact and normal color Course Quality Measures none Orders Category Date Time Status EKG (ED ONLY) *Do not use* NOW Care 01/16/25 02:00 Completed EKG (ED Only) Stat Exams 01/16/25 02:00 Draft Naproxen [Naprosyn] Med 01/16/25 02:19 Discontinued 500 mg PO X1 ONE Vital Signs Vital signs: Vital Signs Temperature 98.3 F 01/16/25 02:08 Pulse Rate 66 01/16/25 02:08 Respiratory Rate 17 01/16/25 02:08 Blood Pressure 133/92 H 01/16/25 02:08 Pulse Oximetry (%) 98 01/16/25 02:08 Oxygen Delivery Method Room Air 01/16/25 02:08 O2 at 98% on RA and WNLs Chest Pain MDM Narrative MDM Narrative:: 34F with no significant PMH presents to ED with several hours of CP. Patient denies URI symptoms and anxiety/depression. Physical exam reveals chest wall tenderness. Clear lungs. RRR. Patient is afebrile, calm, and alert. EKG is NSR. Meds improved symptoms. Patient data External records reviewed:: [facility] previous records Clinical information provided by:: patient Social determinants that could affect healthcare access:: none Patient has the following chronic illnesses:: none How is presenting disease/condition affected by chronic disease/condition?: no chronic disease Evaluation data The following diagnostics were reviewed and interpreted by me:: EKG tracing(s) Lab and/or radiology exams considered but not ordered:: ordered Interpretation Summary: above Medications / Prescriptions Medications or Prescriptions considered but not ordered:: ordered Medication administrations:: Medication Administration History Discontinued Medications Naproxen (Naproxen 250 Mg Tablet) 500 mg PO X1 ONE Stop: 01/16/25 02:20 Last Admin: 01/16/25 02:51 Dose: 500 mg Documented By: EE above Consultations Consultation(s) initiated? (list below): No Diagnosis Chest Pain Differential Diagnosis: fracture of rib, pneumothorax, stable angina, unstable angina pectoris, atypical chest pain, st elevation myocardial infarction, costochondritis, chest pain and biliary colic Most likely diagnosis given after review of the tests above:: costochondritis Admission Indicated Admission indicated?: not indicated Admission Request Was there a request for admission?: No Disposition Plan Disposition Plan: Discharge Discharge Attestation Discharge Attestation: The patient and all family members were given an opportunity to ask questions and understood the discharge instructions. Discharge instructions specifically effects, indications for sooner follow up or return to the emergency department, and the expected course of current diagnosis. Patient condition: Stable Discharge Plan Plan Patient Disposition: HOME (Self Care) Disposition Comment: Stable Prescriptions/Referrals Referrals: Denisse Foster PA-C [Primary Care Provider] - In 1 week Problem List Clinical Impression: Acute costochondritis Patient/Caregiver Discharge Instructions Education Materials: ED Chest Wall Pain, Costochondritis Additional Instructions: Please follow-up with PCP within 24-48 hours and return immediately if symptoms worsen. NSAIDs tend to work better for this type of pain. Print Language: Bengali Stand Alone Forms: Patient Portal Info Letter MICHAEL/SOREN Supervising Physician GIUSEPPE Supervising Physician: Dr. Lizama
== END 2025-01-16 04:21 | disposition home or self-care (01) ==
PROVIDERS: Emergency Provider Emergency Medicine; PCP Physician Assistant
DX: M94.0 Chondrocostal junction syndrome [Tietze] (principal)
CPT/HCPCS: 93005; 99283; A9270

== ENCOUNTER 2025-08-27 03:11 | Emergency (ER) | payer MEDICAID, SELFPAY ==
[2025-08-27 03:11] VITALS: BMI 29.2
[2025-08-27 03:17] VITALS: BP 121/81; PULSE 76; RESP 19; TEMP 36.6; O2SAT 97
--- NOTE | 2025-08-27 03:33 | PD.EDALLER ---
ED Allergic Reaction RME/HPI General Chief complaint: Skin/Abscess/Foreign Body Stated complaint: RASH Time Seen by Provider: 08/27/25 03:25 Arrival date/time: 08/27/25 03:11 35F with no significant PMH presents to ED with 1 day of generalized itchy rash after she ate some new fish. Benadryl provided minimal relief. Limitations: no limitations Related Data Allergies Allergy/AdvReac Type Severity Reaction Status Date / Time Fish Containing Products Allergy Verified 08/27/25 03:14 Review of Systems Review of Systems Systems Reviewed: All systems reviewed, normal except as documented Integumentary/Breasts Skin/Breast: Reports as per HPI, Reports pruritus and Reports rash Past Medical History Past Medical History NEUROLOGIC: Negative Neurological Disorders or Seizures CARDIAC: Negative Cardiac Disorders or Congestive Heart Failure RESPIRATORY: Positive Asthma (as a child); Negative Chronic Obstructive Pulmonary Disease (COPD) GASTROINTESTINAL: Negative Gastrointestinal Disorders GENITOURINARY: Positive Genitourinary Disorders and Kidney Stones; Negative Renal Disease REPRODUCTIVE: Positive Previous Pregnancies (abortions) MUSCULOSKELETAL: Negative Musculoskeletal Disorders ENDOCRINE: Negative Endocrine Disorders, Diabetes Mellitus Type 1 or Diabetes Mellitus Type 2 HEMATOLOGIC: Negative Blood Disorders or Sickle Cell Disease OTHER HISTORY: Negative Hospitalization, Autoimmune Disease, Shingles, Blood Transfusions, Blood Transfusion Reaction, Anesthesia Reactions, Clostridium Difficile or Cancer Family History FAMILY HISTORY: Negative Family Psychiatric Problems, Family Respiratory Disorders, Family Cardiac Disorders, Family Gastrointestinal Problems, Family Cancer, Family Surgery or Family Anesthesia Reaction Social History SMOKING STATUS: Never smoker SUBSTANCE USE: does not use ED Exam General Limitations: Present no limitations General appearance: Present alert and in no apparent distress Head Head exam: Present atraumatic Neck Neck exam: Present normal inspection, full ROM and trachea midline Chest Chest inspection: Present normal inspection and symmetric chest wall rise Neurological Exam Neurological exam: Present alert and oriented X3 Psychiatric Psychiatric exam: Present normal affect and normal mood Skin Skin exam: Present warm, dry, intact, normal color and rash Course Quality Measures none Orders Category Date Time Status Dexamethasone Inj [Decadron Inj] Med 08/27/25 03:25 Discontinued 10 mg PO X1 ONE predniSONE Med 08/27/25 03:25 Discontinued 20 mg PO X1 ONE Vital Signs Vital signs: Vital Signs Temperature 97.9 F 08/27/25 03:17 Pulse Rate 76 08/27/25 03:17 Respiratory Rate 19 08/27/25 03:17 Blood Pressure 121/81 08/27/25 03:17 Pulse Oximetry (%) 97 08/27/25 03:17 Oxygen Delivery Method Room Air 08/27/25 03:17 O2 at 97% on RA and WNLs Allergic Reaction MDM Narrative MDM Narrative:: 35F with no significant PMH presents to ED with 1 day of generalized itchy rash after she ate some new fish. Benadryl provided minimal relief. Physical exam reveals generalized urticarial rash. Normal WOB. Speech normal. Patient is afebrile, calm, and alert. Patient eloped. Patient data External records reviewed:: [facility] previous records Clinical information provided by:: patient Social determinants that could affect healthcare access:: none Patient has the following chronic illnesses:: none How is presenting disease/condition affected by chronic disease/condition?: no chronic disease Evaluation data The following diagnostics were reviewed and interpreted by me:: other (specify) (none) Lab and/or radiology exams considered but not ordered:: not ordered Interpretation Summary: n/a Medications / Prescriptions Medications or Prescriptions considered but not ordered:: ordered Medication administrations:: Medication Administration History Discontinued Medications Dexamethasone Sodium Phosphate (Dexamethasone Sod Phos Inj 10 Mg/Ml Vial) 10 mg PO X1 ONE Stop: 08/27/25 03:26 Last Admin: 08/27/25 03:45 Dose: 10 mg Documented By: SANDOVAL Prednisone (Prednisone 20 Mg Tablet) 20 mg PO X1 ONE Stop: 08/27/25 03:26 Last Admin: 08/27/25 03:43 Dose: 20 mg Documented By: SANDOVAL above Consultations Consultation(s) initiated? (list below): No Diagnosis Differential Diagnosis allergic reaction: anaphylaxis, allergic reaction, angioedema, contact dermatitis, adverse reaction to drug, viral enanthem and urticaria Most likely diagnosis given after review of the tests above:: allergic reaction Admission Indicated Admission indicated?: not indicated Admission Request Was there a request for admission?: No Disposition Plan Disposition Plan: other (specify) (eloped) Discharge Plan Plan Patient Disposition: Elopement Problem List Clinical Impression: Allergic reaction Patient/Caregiver Discharge Instructions Print Language: Swedish PA/PLANT TECHNICAL SPECIALIST Supervising Physician PA/PLANT TECHNICAL SPECIALIST Supervising Physician: Dr. Lara
[2025-08-27] MEDS: DEXAMETHASONE SOD PHOS INJ 10 MG/ML VIAL PO (03:45)
--- NOTE | 2025-08-27 04:16 | PC.NURSE ---
SEEN LEAVING ER.
== END 2025-08-27 04:16 | disposition left against medical advice (07) ==
LOC: SERX 04:22
PROVIDERS: Emergency Provider Emergency Medicine
DX: L50.0 Allergic urticaria (principal); Z53.29 Procedure and treatment not carried out because of patient's decision for other reasons
CPT/HCPCS: 99281; J1100; J7512